=== PATIENT | female | born 1985 | race African-American/Black ===

== ENCOUNTER 2020-08-22 08:09 | Emergency (ER) | payer BC ==
[~2020-08-22] VITALS: Ht 172.7 cm; Wt 68.0 kg
[2020-08-22 08:11] VITALS: Ht 172.7 cm; Wt 68.0 kg
[2020-08-22 09:50] LABS: BASOPHIL % 0.3 % (0-2); PLATELET COUNT 193 x10^3mcL (130-400); RED CELL DISTRIBUTION WIDTH 13.9 % (11.5-14.5)
[2020-08-22 10:04] LABS: CALCIUM 9.2 mg/dL (8.5-10.1); CARBON DIOXIDE 26.1 mmol/L (21-32); CHLORIDE SERUM 106 mmol/L (98-107); CREATININE SERUM 0.7 mg/dL (0.6-1.0); GFR1 > 60 mL/min; GLUCOSE SERUM 86 mg/dL (74-106); POTASSIUM SERUM 4.2 mmol/L (3.5-5.1); SODIUM SERUM 139 mmol/L (136-145)
[2020-08-22 10:08] LABS: ALKALINE PHOSPHATASE 92 U/L (46-116); ALT/SGPT 41 U/L (14-59); AST/SGOT 36 U/L (15-37); BILIRUBIN TOTAL 0.2 mg/dL (0.20-1.00); CHOLESTEROL 194 mg/dL (<200); HDL CHOLESTEROL 47 mg/dL (40-60); LIPASE 122 IU/L (73-393)
[2020-08-22 10:11] LABS: ALBUMIN 2.8 g/dL (3.4-5.0)
[2020-08-22 11:20] LABS: microscopic required? YES; urine erythrocyte 2+ (NEGATIVE)
[2020-08-22 12:14] LABS: AMPHETAMINE QUAL UR NONE DETECTED (See below)
[2020-08-22 12:18] VITALS: BP 133/88
== END 2020-08-22 12:54 | disposition home or self-care (01) ==
LOC: ED 08:09
PROVIDERS: Emergency Medicine
DX: O90.89 Other complications of the puerperium, not elsewhere classified (principal); R07.89 Other chest pain; E46 Unspecified protein-calorie malnutrition
CPT/HCPCS: 83880; 85378; Q0092; Q9967